=== PATIENT | female | born 1965 | race Caucasian/White ===

== ENCOUNTER 2018-11-10 08:37 | Day surgery (SDC) | payer OTHER, BC ==
[~2018-11-10 08:37] MED LIST: Cefuroxime 10 MG/ML SYRINGE EYERT SCH
[2018-11-10] MEDS: Polymyxin B/Trimethoprim 10 ML Bottle EYERT SCH ×4 (09:10→11:25)
[2018-11-10] MEDS: Brimonidine 0.2% Ophth Soln 5 ML Bottle EYERT SCH ×4 (09:16→11:25)
[2018-11-10] MEDS: Phenylephrine 2.5% Ophth Soln 2 ML Bot EYERT SCH ×6 (09:21→10:52)
--- NOTE | 2018-11-10 09:22 | PCM.PREANE ---
Preanesthetic Assessment - Anesthesia/Transfusion/Family Hx Anesthesia History: Prior Anesthesia Without Reaction Family History of Anesthesia Reaction: No Transfusion History: No Prior Transfusion(s) - Review of Systems General: No Symptoms, Other (arthritis) Pulmonary: No Symptoms Cardiovascular: No Symptoms Gastrointestinal: Other (GERD) Neurological: No Symptoms Other: Reports: None - Physical Assessment NPO Status Date: 11/09/18 NPO Status Time: 19:00 Pulse: 72 O2 Sat by Pulse Oximetry: 98 Respiratory Rate: 16 Blood Pressure: 132/72 Weight: 88.451 kg Mental Status: Alert & Oriented x3 Airway Class: Mallampati = 2 Dentition: Reports: Normal Dentition Thyro-Mental Finger Breadths: 3 Mouth Opening Finger Breadths: 3 ROM/Head Extension: Full Lungs: Clear to Auscultation, Normal Respiratory Effort Cardiovascular: Regular Rate, Regular Rhythm - Allergies Allergies/Adverse Reactions: Allergies Allergy/AdvReac Type Severity Reaction Status Date / Time cephalexin [From Keflex] Allergy Cannot Verified 11/09/18 13:31 Remember Cephalosporins Allergy Cannot Verified 11/09/18 13:31 Remember erythromycin base Allergy Cannot Verified 11/09/18 13:31 Remember hydromorphone [From Dilaudid] Allergy Cannot Verified 11/09/18 13:31 Remember prednisone Allergy Cannot Verified 11/09/18 13:31 Remember - Blood Blood Available: No Product(s) Available: None - Anesthesia Plan Pre-Op Medication Ordered: None - Acknowledgements Anesthesia Type Planned: MAC Pt an Appropriate Candidate for the Planned Anesthesia: Yes Alternatives and Risks of Anesthesia Discussed w Pt/Guardian: Yes Pt/Guardian Understands and Agrees with Anesthesia Plan: Yes PreAnesthesia Questionnaire - HOME MEDS Home Medications: Home Meds Ibuprofen 200 - 600 mg PO DAILY 11/09/18 [History] Lactobacillus Combination No.4 [Probiotic] 1 cap PO DAILY 11/09/18 [History] Meloxicam 15 mg PO DAILY 11/09/18 [History] Multivitamin [Daily Multiple Vitamin] 1 tab PO DAILY 11/09/18 [History] - CURRENT (IN HOUSE) MEDS Current Meds: Current Medications Brimonidine Tartrate (Alphagan 0.2% Ophth Soln) 0 ml EYERT ASDIRECTED BARBER Stop: 11/10/18 23:00 Cefuroxime Sodium (Zinacef) 0 mg EYERT ASDIRECTED BARBER Stop: 11/10/18 23:00 Lidocaine HCl (Xylocaine-Mpf 1%) 0 ml INJECT ASDIRECTED BARBER Stop: 11/10/18 23:00 Phenylephrine HCl (Trevor-Synephrine 2.5% Ophth Soln) 0 ml EYERT ASDIRECTED BARBER Stop: 11/10/18 23:00 Pilocarpine HCl (Pilocar 4% Ophth Soln) 0 ml EYERT ASDIRECTED BARBER Stop: 11/10/18 23:00 Polymyxin/Trimethoprim Sulfate (Polytrim Ophth Soln) 0 ml EYERT ASDIRECTED BARBER Stop: 11/10/18 23:00 Last Admin: 11/10/18 09:10 Dose: 1 drop Tetracaine HCl (Tetracaine 0.5% Steri-Unit Marquita) 0 ml EYERT ASDIRECTED BARBER Stop: 11/10/18 23:00 Tropicamide (Mydriacyl 1% Ophth Soln) 0 ml EYERT ASDIRECTED BARBER Stop: 11/10/18 23:00
[2018-11-10] MEDS: Tropicamide 1% Ophth Soln 15 ML Bottle EYERT SCH ×4 (09:26→10:20)
[2018-11-10] MEDS: Lidocaine 1% PF 2 ML SDV INJECT SCH ×2 (10:15→11:12)
[2018-11-10] MEDS: Tetracaine HCl/PF 0.5% 4 ML Bottle EYERT SCH ×5 (10:15→11:20)
[2018-11-10] MEDS: Pilocarpine 4% Ophth Soln 15 ML Bot EYERT SCH ×2 (10:15→11:25)
--- NOTE | 2018-11-10 11:28 | PCM48HPAN ---
Post Anesthesia Note - EVALUATION WITHIN 48HRS OF ANESTHETIC Vital Signs in Normal Range: Yes Patient Participated in Evaluation: Yes Respiratory Function Stable: Yes Airway Patent: Yes Cardiovascular Function Stable: Yes Hydration Status Stable: Yes Pain Control Satisfactory: Yes Nausea and Vomiting Control Satisfactory: Yes Mental Status Recovered: Yes Pulse Rate: 68 SaO2: 100 Resp Rate: 16 Temperature: 37 C Blood Pressure: 118/64
== END 2018-11-10 11:37 | disposition home or self-care (01) ==
LOC: JD.SDS 08:37
PROVIDERS: ATTEND Ophthalmology
DX: H25.813 Combined forms of age-related cataract, bilateral (principal); H40.1334 Pigmentary glaucoma, bilateral, indeterminate stage; H16.223 Keratoconjunctivitis sicca, not specified as Sjogren's, bilateral; H31.093 Other chorioretinal scars, bilateral; H52.223 Regular astigmatism, bilateral; M19.90 Unspecified osteoarthritis, unspecified site; Z88.1 Allergy status to other antibiotic agents; Z88.5 Allergy status to narcotic agent; Z79.899 Other long term (current) drug therapy
CPT/HCPCS: 66984; J2001; J0697; V2632

== ENCOUNTER 2018-12-07 11:16 | Day surgery (SDC) | payer BC, OTHER ==
[~2018-12-07 11:16] MED LIST changes: +Brimonidine 0.2% Ophth Soln 15 ML Bottle EYELF SCH; +Brimonidine 0.2% Ophth Soln 5 ML Bottle EYELF SCH; +Cefuroxime 10 MG/ML SYRINGE EYELF SCH; -Cefuroxime 10 MG/ML SYRINGE EYERT SCH; +Lidocaine 1% PF 2 ML SDV INJECT SCH; +Pilocarpine 4% Ophth Soln 15 ML Bot EYELF SCH
[2018-12-07] MEDS: Polymyxin B/Trimethoprim 10 ML Bottle EYELF SCH ×3 (12:30→14:05)
[2018-12-07] MEDS: Brimonidine 0.2% Ophth Soln 15 ML Bottle EYELF SCH ×2 (12:35→13:07)
[2018-12-07] MEDS: Phenylephrine 2.5% Ophth Soln 2 ML Bot EYELF SCH ×5 (12:40→13:44)
[2018-12-07] MEDS: Tropicamide 1% Ophth Soln 15 ML Bottle EYELF SCH ×4 (12:45→13:15)
--- NOTE | 2018-12-07 12:45 | PCM.PREANE ---
Preanesthetic Assessment - Anesthesia/Transfusion/Family Hx Anesthesia History: Prior Anesthesia Without Reaction Family History of Anesthesia Reaction: No Transfusion History: No Prior Transfusion(s) Intubation History: Unknown - Review of Systems General: No Symptoms Pulmonary: No Symptoms Cardiovascular: No Symptoms Gastrointestinal: No Symptoms (GERD) Neurological: No Symptoms, Dizziness (Inner ear infection chronic) Other: Reports: None (History of DVT: filter placed.3), Easy Bleeding, Easy Bruising - Physical Assessment NPO Status Date: 12/07/18 NPO Status Time: 04:30 Pulse: 76 O2 Sat by Pulse Oximetry: 100 Respiratory Rate: 16 Blood Pressure: 125/69 Temperature: 36.1 C Height: 1.52 m Weight: 81.647 kg ASA Class: 2 Mental Status: Alert & Oriented x3 Airway Class: Mallampati = 2 Dentition: Reports: Normal Dentition, Caries Thyro-Mental Finger Breadths: 3 Mouth Opening Finger Breadths: 3 ROM/Head Extension: Full Lungs: Clear to Auscultation, Normal Respiratory Effort Cardiovascular: Regular Rate, Regular Rhythm, No Murmurs - Allergies Allergies/Adverse Reactions: Allergies Allergy/AdvReac Type Severity Reaction Status Date / Time cephalexin [From Keflex] Allergy Cannot Verified 12/04/18 13:32 Remember Cephalosporins Allergy Cannot Verified 12/04/18 13:32 Remember erythromycin base Allergy Cannot Verified 12/04/18 13:32 Remember hydromorphone [From Dilaudid] Allergy Cannot Verified 12/04/18 13:32 Remember prednisone Allergy Cannot Verified 12/04/18 13:32 Remember - Anesthesia Plan Pre-Op Medication Ordered: None - Acknowledgements Anesthesia Type Planned: MAC Pt an Appropriate Candidate for the Planned Anesthesia: Yes Alternatives and Risks of Anesthesia Discussed w Pt/Guardian: Yes Pt/Guardian Understands and Agrees with Anesthesia Plan: Yes PreAnesthesia Questionnaire - HOME MEDS Home Medications: Home Meds Ibuprofen 200 - 600 mg PO DAILY 11/09/18 [History] Lactobacillus Combination No.4 [Probiotic] 1 cap PO DAILY 11/09/18 [History] Meloxicam 15 mg PO DAILY 11/09/18 [History] Multivitamin [Daily Multiple Vitamin] 1 tab PO DAILY 11/09/18 [History] - CURRENT (IN HOUSE) MEDS Current Meds: Current Medications Brimonidine Tartrate (Brimonidine Tartrate 0.2% Ophth Soln) 0 ml EYELF ASDIRECTED BARBER Stop: 12/07/18 18:00 Last Admin: 12/07/18 12:35 Dose: 1 drop Cefuroxime Sodium (Zinacef) 0 mg EYELF ASDIRECTED BARBER Stop: 12/07/18 18:00 Lidocaine HCl (Xylocaine-Mpf 1%) 0 ml INJECT ASDIRECTED BARBER Stop: 12/07/18 18:00 Phenylephrine HCl (Trevor-Synephrine 2.5% Ophth Soln) 0 ml EYELF ASDIRECTED BARBER Stop: 12/07/18 18:00 Last Admin: 12/07/18 12:40 Dose: 1 drop Pilocarpine HCl (Pilocar 4% Ophth Soln) 0 ml EYELF ASDIRECTED BARBER Stop: 12/07/18 18:00 Polymyxin/Trimethoprim Sulfate (Polytrim Ophth Soln) 0 ml EYELF ASDIRECTED BARBER Stop: 12/07/18 18:00 Last Admin: 12/07/18 12:30 Dose: 1 drop Tetracaine HCl (Tetracaine 0.5% Steri-Unit Marquita) 0 ml EYELF ASDIRECTED BARBER Stop: 12/07/18 18:00 Tropicamide (Mydriacyl 1% Ophth Soln) 0 ml EYELF ASDIRECTED BARBER Stop: 12/07/18 18:00 Discontinued Medications Brimonidine Tartrate (Alphagan 0.2% Ophth Soln) 0 ml EYELF ASDIRECTED BARBER Stop: 12/07/18 18:00 Brimonidine Tartrate (Brimonidine Tartrate 0.2% Ophth Soln) 0 ml EYELF ASDIRECTED BARBER
[2018-12-07] MEDS: Tetracaine HCl/PF 0.5% 4 ML Bottle EYELF SCH ×4 (13:20→13:57)
--- NOTE | 2018-12-07 14:09 | PCM48HPAN ---
Post Anesthesia Note - EVALUATION WITHIN 48HRS OF ANESTHETIC Vital Signs in Normal Range: Yes Patient Participated in Evaluation: Yes Respiratory Function Stable: Yes Airway Patent: Yes Cardiovascular Function Stable: Yes Hydration Status Stable: Yes Pain Control Satisfactory: Yes Nausea and Vomiting Control Satisfactory: Yes Mental Status Recovered: Yes Pulse Rate: 76 SaO2: 100 Resp Rate: 16 Temperature: 36.1 C Blood Pressure: 125/69
== END 2018-12-07 14:16 | disposition home or self-care (01) ==
LOC: JD.SDS 11:16
PROVIDERS: ATTEND Ophthalmology
DX: H25.812 Combined forms of age-related cataract, left eye (principal); H40.1334 Pigmentary glaucoma, bilateral, indeterminate stage; H31.093 Other chorioretinal scars, bilateral; M19.90 Unspecified osteoarthritis, unspecified site; Z96.1 Presence of intraocular lens; Z98.41 Cataract extraction status, right eye; Z87.891 Personal history of nicotine dependence; Z88.1 Allergy status to other antibiotic agents; Z88.5 Allergy status to narcotic agent; Z88.8 Allergy status to other drugs, medicaments and biological substances; Z79.899 Other long term (current) drug therapy
CPT/HCPCS: 66984; J2001

== ENCOUNTER 2022-11-11 16:34 | Emergency (ER) | payer BC, OTHER | END 2022-11-11 19:35 | disposition home or self-care (01) | LOC: JD.ED 16:34 | DX: M25.572 Pain in left ankle and joints of left foot (principal); M79.89 Other specified soft tissue disorders; Z88.1 Allergy status to other antibiotic agents; Z88.8 Allergy status to other drugs, medicaments and biological substances; Z88.5 Allergy status to narcotic agent | CPT/HCPCS: 93971-26-LT; 93971-LT; 99283 ==